=== PATIENT | male | born 1975 | race African-American/Black ===

== ENCOUNTER 2023-10-27 15:35 | Emergency (ER) | payer MEDICAID ==
[~2023-10-27] VITALS: Ht 175.3 cm; Wt 77.0 kg
[2023-10-27 17:05] LABS: CHLORIDE 105 mEq/L (98-107); POTASSIUM 3.2 mEq/L (3.5-5.1); SODIUM 138 mEq/L (136-145)
[2023-10-27 17:06] LABS: BASOPHILS % 1.3 % (0.0-2.0); CALCIUM 8.1 mg/dL (8.7-10.4); CARBON DIOXIDE 22 mEq/L (21-32); HEMATOCRIT. 23.4 % (42.0-52.0); HEMOGLOBIN. 8.1 g/dL (14.0-18.0); LYMPHOCYTES % 8.6 % (20.0-50.0); MEAN CORPUSCULAR HEMOGLOBIN 41.8 pg (28.0-32.0); MEAN CORPUSCULAR HGB CONC 34.7 g/dL (31.0-37.0); MEAN CORPUSCULAR VOLUME 120.5 fL (80.0-94.0); MEAN PLATELET VOLUME 9.9 fl (7.4-10.4); MONOCYTES % 6.6 % (2.0-8.0); NEUTROPHILS % 82.5 % (40.0-76.0); PLATELET 96 x1000/uL (130-400); RED BLOOD CELL COUNT 1.94 mill/uL (4.7-6.1); RED CELL DISTRIBUTION WIDTH 18.1 % (11.6-14.6); WHITE BLOOD COUNT 15.8 x1000/uL (4.5-11.0)
[2023-10-27 17:10] LABS: ADD RBC MORPHOLOGY YES; DIFFERENTIAL COMMENT 1
[2023-10-27 17:11] LABS: CREATININE 1.3 mg/dL (0.6-1.3); GLUCOSE 97 mg/dL (70-105); UREA NITROGEN BLOOD 10 mg/dL (9-23)
[2023-10-27 17:13] LABS: ALANINE AMINOTRANSFERASE 51 IU/L (10-49); ALBUMIN 2.6 g/dL (3.2-4.8); ASPARTATE AMINOTRANSFERASE 442 IU/L (<34); BILIRUBIN DIRECT > 15.0 mg/dL (<=3.0); BILIRUBIN TOTAL 30.8 mg/dL (0.1-1.0); PROTEIN TOTAL 7.4 g/dL (6.0-8.3)
[2023-10-27 17:20] VITALS: BP 127/83; PULSE 105; RESP 22; TEMP 98.2; O2SAT 100
[2023-10-27 17:22] LABS: PLATELET ESTIMATE DECREASED
[2023-10-27 17:23] LABS: ANISOCYTOSIS 2+
[2023-10-27 17:24] LABS: GIANT PLATELETS FEW; OVALOCYTES 1+
[2023-10-27] MEDS ORDERED: FAMO-135 MT (20:35)
[2023-10-27] MEDS ORDERED: ONDA4TAB11 PO (20:35)
== END 2023-10-28 01:12 | disposition left against medical advice (07) ==
LOC: ER 15:35
DX: R11.2 Nausea with vomiting, unspecified (principal); R10.13 Epigastric pain
CPT/HCPCS: 36415; 80053; 80076; 85025; 99283

== ENCOUNTER 2023-11-01 09:07 | Inpatient (IN) | payer OTHER ==
[~2023-11-01] VITALS: Ht 172.7 cm; Wt 90.7 kg
[2023-11-01] VITALS (100 sets, daily range): BP systolic 66–125; BP diastolic 39–93; PULSE 68–143; RESP 16–37; TEMP 97–97.8
[~2023-11-01 09:07] MED LIST: FAMO-135 MT; ONDA4TAB11 PO
[2023-11-01 10:46] LABS: HEMATOCRIT. 20.7 % (42.0-52.0); MEAN CORPUSCULAR HEMOGLOBIN 35.8 pg (28.0-32.0); MEAN CORPUSCULAR HGB CONC 30.7 g/dL (31.0-37.0); MEAN CORPUSCULAR VOLUME 116.7 fL (80.0-94.0); MEAN PLATELET VOLUME 8.9 fl (7.4-10.4); PLATELET 48 x1000/uL (130-400); RED BLOOD CELL COUNT 1.78 mill/uL (4.7-6.1); RED CELL DISTRIBUTION WIDTH 34.4 % (11.6-14.6); WHITE BLOOD COUNT 17.9 x1000/uL (4.5-11.0)
[2023-11-01 11:03] LABS: DIFFERENTIAL COMMENT 1; HEMOGLOBIN. 6.4 g/dL (14.0-18.0)
[2023-11-01 11:08] LABS: CHLORIDE 108 mEq/L (98-107); POTASSIUM 4.4 mEq/L (3.5-5.1); SODIUM 139 mEq/L (136-145)
[2023-11-01 11:09] LABS: CALCIUM 7.2 mg/dL (8.7-10.4)
[2023-11-01 11:14] LABS: GLUCOSE 75 mg/dL (70-105); UREA NITROGEN BLOOD 17 mg/dL (9-23)
[2023-11-01 11:16] LABS: ALANINE AMINOTRANSFERASE 447 IU/L (10-49); ALBUMIN 1.5 g/dL (3.2-4.8); BILIRUBIN TOTAL 18.7 mg/dL (0.1-1.0); PROTEIN TOTAL 4.4 g/dL (6.0-8.3)
[2023-11-01] MEDS: EPINEPHRINE 10 MG in SODIUM CHLORIDE 0.9% 240 ML IV PRN (11:16)
[2023-11-01] MEDS: LACTATED RINGERS 1,000 ML IV SCH (11:16)
[2023-11-01] MEDS: METHYLPREDNISOLONE SOD SUCC 2,000 MG in DEXT 5% WATER 100 ML IV SCH (11:17)
[2023-11-01] MEDS: VASOPRESSIN 20 UNIT in SODIUM CHLORIDE 0.9% 99 ML IV PRN (11:18)
[2023-11-01] MEDS: PHENYLEPHRINE 100 MG in DEXT 5% WATER 240 ML IV PRN (11:18)
[2023-11-01] MEDS: ALBUMIN HUMAN 25GM/500ML (5%) IV SCH (11:24)
[2023-11-01 11:34] LABS: CARBON DIOXIDE < 10 mEq/L (21-32); CREATININE 4.1 mg/dL (0.6-1.3)
[2023-11-01 12:37] LABS: BG BASE EXCESS -23.4 mmol/L (-2.0-2.0); BG CARBOXYHEMOGLOBIN 1.5 % (0.5-1.5); BG DEOXYHEMOGLOBIN 6.7 % (0.0-5.0); BG FRACTION INSPIRED OXYGEN 40; BG HCO3 ACT 7.2 mmol/L (22.0-26.0); BG METHEMOGLOBIN 0.4 % (0.0-1.5); BG OXYGEN SATURATION 93.2 % (92.0-98.5); BG OXYHEMOGLOBIN 91.4 % (94.0-97.0); BG PCO2 37.2 mmHg (35.0-45.0); BG PH 6.906 (7.350-7.450); BG PO2 87.5 mmHg (75.0-100.0); BG SAMPLE SITE LEFT RADIAL; BG TOTAL HEMOGLOBIN 5.7 g/dL (12.0-18.0); BG TOTAL RESPIRATORY RATE 16 b/min; BG VENT MODE VENT - AC
[2023-11-01] MEDS: SODIUM BICARBONATE 8.4% 1 MEQ/ML 50ML SYR IV ONE ×2 (13:00)
[2023-11-01 13:19] LABS: ANISOCYTOSIS 3+; PLATELET ESTIMATE MARKEDLY DECREASED
[2023-11-01] MEDS: SODIUM BICARBONATE 8.4% 1 MEQ/ML 50ML SYR IV NR ×3 (13:40→22:59)
[2023-11-01 14:00] LABS: BG BASE EXCESS -19.1 mmol/L (-2.0-2.0); BG CARBOXYHEMOGLOBIN 1.1 % (0.5-1.5); BG FRACTION INSPIRED OXYGEN 40; BG HCO3 ACT 9.1 mmol/L (22.0-26.0); BG METHEMOGLOBIN 0.2 % (0.0-1.5); BG OXYGEN SATURATION 92.9 % (92.0-98.5); BG OXYHEMOGLOBIN 91.7 % (94.0-97.0); BG PCO2 31.1 mmHg (35.0-45.0); BG PH 7.086 (7.350-7.450); BG SAMPLE SITE LEFT RADIAL; BG TOTAL HEMOGLOBIN 6.3 g/dL (12.0-18.0); BG TOTAL RESPIRATORY RATE 29 b/min; BG VENT MODE VENT - AC
[2023-11-01 14:09] LABS: *AMPHETAMINES SCREEN URINE NEGATIVE (NEGATIVE); *BARBITURATES SCREEN URINE NEGATIVE (NEGATIVE); *COCAINE SCREEN URINE NEGATIVE (NEGATIVE); ECSTASY MDMA SCREEN URINE NEGATIVE (NEGATIVE); METHADONE URINE SCREEN NEGATIVE (NEGATIVE); OPIATES URINE SCREEN NEGATIVE (NEGATIVE); PHENCYCLIDINE URINE SCREEN NEGATIVE (NEGATIVE)
[2023-11-01] MEDS: EPINEPHRINE 20 MG in SODIUM CHLORIDE 0.9% 480 ML IV PRN (14:16)
[2023-11-01] MEDS: BLOOD SUGAR DIAGNOSTIC STRIP TEST SCH (14:18)
[2023-11-01] MEDS: DEXTROSE 50% WATER 50ML SYRINGE IV PRN (16:36)
[2023-11-01] MEDS: PIPERACILLIN/TAZO 3.375G/50ML 50 ML IV SCH (17:02)
[2023-11-01 17:30] LABS: BG BASE EXCESS -16.3 mmol/L (-2.0-2.0); BG CARBOXYHEMOGLOBIN 0.3 % (0.5-1.5); BG DEOXYHEMOGLOBIN 4.6 % (0.0-5.0); BG FRACTION INSPIRED OXYGEN 40; BG HCO3 ACT 11.6 mmol/L (22.0-26.0); BG METHEMOGLOBIN 0.2 % (0.0-1.5); BG OXYGEN SATURATION 95.4 % (92.0-98.5); BG OXYHEMOGLOBIN 94.9 % (94.0-97.0); BG PCO2 35.4 mmHg (35.0-45.0); BG PH 7.133 (7.350-7.450); BG PO2 84.1 mmHg (75.0-100.0); BG SAMPLE SITE ALINE; BG TOTAL HEMOGLOBIN 8.8 g/dL (12.0-18.0); BG VENT MODE VENT - APRV
[2023-11-01 17:35] LABS: HEMATOCRIT. 26.1 % (42.0-52.0); HEMOGLOBIN. 8.5 g/dL (14.0-18.0); MEAN CORPUSCULAR HEMOGLOBIN 33.1 pg (28.0-32.0); MEAN CORPUSCULAR HGB CONC 32.5 g/dL (31.0-37.0); MEAN CORPUSCULAR VOLUME 102.1 fL (80.0-94.0); MEAN PLATELET VOLUME 8.8 fl (7.4-10.4); RED BLOOD CELL COUNT 2.55 mill/uL (4.7-6.1); RED CELL DISTRIBUTION WIDTH 25.8 % (11.6-14.6)
[2023-11-01 17:37] LABS: DIFFERENTIAL COMMENT 1
[2023-11-01 17:38] LABS: PLATELET 35 x1000/uL (130-400)
[2023-11-01 18:06] LABS: PROTHROMBIN TIME > 100.0 sec (9.6-11.0)
[2023-11-01 18:11] LABS: ANISOCYTOSIS 2+; NUCLEATED RED BLOOD CELLS 3 /100 WBC; PLATELET ESTIMATE MARKEDLY DECREASED
[2023-11-01 18:14] LABS: INR > 10.0; PARTIAL THROMBOPLASTIN TIME > 200.0 sec (23.4-31.0)
[2023-11-01 18:23] LABS: LACTIC ACID 18.1 mmol/L (0.4-2.0)
[2023-11-01] MEDS: METHYLPREDNISOLONE SOD SUCC 500 MG in DEXT 5% WATER 100 ML IV SCH (18:42)
[2023-11-01] MEDS: DOBUTAMINE 250MG PREMIX 250 ML IV PRN (18:42)
[2023-11-01] MEDS: NOREPINEPHRINE 32 MG in DEXT 5% WATER 218 ML IV PRN (18:42)
[2023-11-01 20:07] LABS: CHLORIDE 108 mEq/L (98-107); POTASSIUM 4.3 mEq/L (3.5-5.1); SODIUM 147 mEq/L (136-145)
[2023-11-01 20:08] LABS: CARBON DIOXIDE 11 mEq/L (21-32)
[2023-11-01 20:13] LABS: CREATINE KINASE MB FRACTION 6.4 ng/mL (0.5-3.6); CREATININE 3.9 mg/dL (0.6-1.3); GLUCOSE 105 mg/dL (70-105)
[2023-11-01 20:14] LABS: UREA NITROGEN BLOOD 17 mg/dL (9-23)
[2023-11-01 20:15] LABS: ALANINE AMINOTRANSFERASE 554 IU/L (10-49); ALBUMIN 1.7 g/dL (3.2-4.8); AMYLASE 344 IU/L (30-118); ASPARTATE AMINOTRANSFERASE > 1000 IU/L (<34); BILIRUBIN DIRECT > 15.0 mg/dL (<=3.0); CREATINE KINASE 333 IU/L (46-171); LACTATE DEHYDROGENASE > 750 IU/L (120-246)
[2023-11-01 20:16] LABS: BILIRUBIN TOTAL 21.3 mg/dL (0.1-1.0); PROTEIN TOTAL 4.3 g/dL (6.0-8.3)
[2023-11-01 20:25] LABS: CALCIUM 6.7 mg/dL (8.7-10.4); PHOSPHORUS 9.3 mg/dL (2.5-4.9)
[2023-11-01 20:26] LABS: TROPONIN I HIGH SENSITIVITY 183 ng/L (3.0-53)
[2023-11-01] MEDS: FUROSEMIDE 100MG/10ML VIAL IVP NR ×2 (21:01→23:34)
[2023-11-01 21:56] LABS: BG BASE EXCESS -23.8 mmol/L (-2.0-2.0); BG CARBOXYHEMOGLOBIN 0.3 % (0.5-1.5); BG DEOXYHEMOGLOBIN 2.5 % (0.0-5.0); BG FRACTION INSPIRED OXYGEN 40; BG HCO3 ACT 5.5 mmol/L (22.0-26.0); BG METHEMOGLOBIN 0.3 % (0.0-1.5); BG OXYGEN SATURATION 97.5 % (92.0-98.5); BG OXYHEMOGLOBIN 96.9 % (94.0-97.0); BG PCO2 22.4 mmHg (35.0-45.0); BG PH 7.009 (7.350-7.450); BG PO2 116.8 mmHg (75.0-100.0); BG SAMPLE SITE ALINE; BG TOTAL HEMOGLOBIN 8.5 g/dL (12.0-18.0); BG VENT MODE VENT - APRV
[2023-11-01] MEDS: DOPAMINE 800MG PREMIX (DOUBLE) 250 ML IV PRN (23:04)
[2023-11-02] VITALS (60 sets, daily range): BP systolic 82–125; BP diastolic 56–84; PULSE 76–157; RESP 0–33; TEMP 97.7–98.7
[2023-11-02] MEDS: DEXTROSE 50% WATER 50ML SYRINGE IV NR (00:28)
[2023-11-02] MEDS: METOLAZONE 10MG TABLET PO NR (00:35)
[2023-11-02 00:42] LABS: HEMOGLOBIN. 7.4 g/dL (14.0-18.0); MEAN CORPUSCULAR HEMOGLOBIN 33.1 pg (28.0-32.0); MEAN CORPUSCULAR HGB CONC 30.7 g/dL (31.0-37.0); MEAN CORPUSCULAR VOLUME 107.7 fL (80.0-94.0); MEAN PLATELET VOLUME 9.1 fl (7.4-10.4); RED BLOOD CELL COUNT 2.23 mill/uL (4.7-6.1); WHITE BLOOD COUNT 20.1 x1000/uL (4.5-11.0)
[2023-11-02 00:53] LABS: DIFFERENTIAL COMMENT 1; GLUCOSE 135 mg/dL (70-105); PLATELET 31 x1000/uL (130-400)
[2023-11-02 00:54] LABS: BG BASE EXCESS -22.4 mmol/L (-2.0-2.0); BG CARBOXYHEMOGLOBIN 0.2 % (0.5-1.5); BG DEOXYHEMOGLOBIN 1.8 % (0.0-5.0); BG FRACTION INSPIRED OXYGEN 60; BG HCO3 ACT 6.2 mmol/L (22.0-26.0); BG METHEMOGLOBIN 0.6 % (0.0-1.5); BG OXYGEN SATURATION 98.2 % (92.0-98.5); BG OXYHEMOGLOBIN 97.4 % (94.0-97.0); BG PCO2 22.6 mmHg (35.0-45.0); BG PH 7.053 (7.350-7.450); BG PO2 149.4 mmHg (75.0-100.0); BG SAMPLE SITE ALINE; BG TOTAL HEMOGLOBIN 7.2 g/dL (12.0-18.0); BG VENT MODE VENT - APRV
[2023-11-02 00:54] LABS: CREATINE KINASE MB FRACTION 10.5 ng/mL (0.5-3.6); UREA NITROGEN BLOOD 16 mg/dL (9-23)
[2023-11-02 00:55] LABS: ALANINE AMINOTRANSFERASE 576 IU/L (10-49); ALBUMIN 1.8 g/dL (3.2-4.8); AMYLASE 310 IU/L (30-118); ASPARTATE AMINOTRANSFERASE > 1000 IU/L (<34); BILIRUBIN DIRECT 14.7 mg/dL (<=3.0); CREATINE KINASE 600 IU/L (46-171); LACTATE DEHYDROGENASE > 750 IU/L (120-246)
[2023-11-02 00:56] LABS: BILIRUBIN TOTAL 20.9 mg/dL (0.1-1.0)
[2023-11-02 00:57] LABS: CALCIUM 6.6 mg/dL (8.7-10.4); CHLORIDE 106 mEq/L (98-107); CREATININE 4.1 mg/dL (0.6-1.3); POTASSIUM 4.1 mEq/L (3.5-5.1); PROTEIN TOTAL 4.3 g/dL (6.0-8.3); SODIUM 146 mEq/L (136-145)
[2023-11-02] MEDS: FUROSEMIDE 100MG/10ML VIAL IVP NR (01:06)
[2023-11-02 01:08] LABS: CARBON DIOXIDE < 10 mEq/L (21-32)
[2023-11-02 01:09] LABS: PHOSPHORUS 8.6 mg/dL (2.5-4.9); TROPONIN I HIGH SENSITIVITY 292 ng/L (3.0-53)
[2023-11-02 01:11] LABS: LACTIC ACID 21.1 mmol/L (0.4-2.0)
[2023-11-02 01:21] LABS: PROTHROMBIN TIME 31.1 sec (9.6-11.0)
[2023-11-02] MEDS: SODIUM BICARBONATE 8.4% 1 MEQ/ML 50ML SYR IV NR ×6 (01:38→11:10)
[2023-11-02] MEDS ORDERED: METHYLENE BLUE 1% VIAL 1ML IV ONE ×2 (03:15→10:45)
[2023-11-02 04:51] LABS: BG BASE EXCESS -22.3 mmol/L (-2.0-2.0); BG CARBOXYHEMOGLOBIN 0.2 % (0.5-1.5); BG DEOXYHEMOGLOBIN 0.7 % (0.0-5.0); BG FRACTION INSPIRED OXYGEN 90; BG METHEMOGLOBIN 0.6 % (0.0-1.5); BG OXYGEN SATURATION 99.3 % (92.0-98.5); BG OXYHEMOGLOBIN 98.5 % (94.0-97.0); BG PCO2 21.3 mmHg (35.0-45.0); BG PH 7.067 (7.350-7.450); BG PO2 261.3 mmHg (75.0-100.0); BG SAMPLE SITE ALINE; BG TOTAL HEMOGLOBIN 7.8 g/dL (12.0-18.0); BG VENT MODE VENT - APRV
[2023-11-02 05:12] LABS: UREA NITROGEN BLOOD 16 mg/dL (9-23)
[2023-11-02 05:13] LABS: ALANINE AMINOTRANSFERASE 558 IU/L (10-49); ALBUMIN 1.5 g/dL (3.2-4.8); AMYLASE 296 IU/L (30-118); CREATINE KINASE 631 IU/L (46-171)
[2023-11-02 05:14] LABS: BILIRUBIN DIRECT 13.4 mg/dL (<=3.0); BILIRUBIN TOTAL 18.8 mg/dL (0.1-1.0); PHOSPHORUS 7.7 mg/dL (2.5-4.9); PROTEIN TOTAL 3.8 g/dL (6.0-8.3)
[2023-11-02 05:31] LABS: CALCIUM 6.5 mg/dL (8.7-10.4); CHLORIDE 107 mEq/L (98-107); CREATININE 4.3 mg/dL (0.6-1.3); GLUCOSE 144 mg/dL (70-105); POTASSIUM 3.9 mEq/L (3.5-5.1); SODIUM 148 mEq/L (136-145)
[2023-11-02 05:33] LABS: BASOPHILS % 0.2 % (0.0-2.0); EOSINOPHILS % 1.1 % (0.0-5.0); LYMPHOCYTES % 3.6 % (20.0-50.0); MEAN CORPUSCULAR HEMOGLOBIN 33.3 pg (28.0-32.0); MEAN CORPUSCULAR HGB CONC 31.8 g/dL (31.0-37.0); MEAN CORPUSCULAR VOLUME 104.6 fL (80.0-94.0); MONOCYTES % 8.9 % (2.0-8.0); NEUTROPHILS % 86.2 % (40.0-76.0); RED BLOOD CELL COUNT 1.96 mill/uL (4.7-6.1); RED CELL DISTRIBUTION WIDTH 26.2 % (11.6-14.6); WHITE BLOOD COUNT 19.4 x1000/uL (4.5-11.0)
[2023-11-02 05:48] LABS: LACTIC ACID 24.7 mmol/L (0.4-2.0)
[2023-11-02 06:10] LABS: BG BASE EXCESS -23.4 mmol/L (-2.0-2.0); BG CARBOXYHEMOGLOBIN 0.1 % (0.5-1.5); BG DEOXYHEMOGLOBIN 2.2 % (0.0-5.0); BG FRACTION INSPIRED OXYGEN 60; BG HCO3 ACT 5.5 mmol/L (22.0-26.0); BG METHEMOGLOBIN 1.1 % (0.0-1.5); BG OXYGEN SATURATION 97.8 % (92.0-98.5); BG OXYHEMOGLOBIN 96.6 % (94.0-97.0); BG PCO2 21.6 mmHg (35.0-45.0); BG PH 7.025 (7.350-7.450); BG PO2 144.4 mmHg (75.0-100.0); BG SAMPLE SITE ALINE; BG VENT MODE VENT - APRV
[2023-11-02 06:36] LABS: CARBON DIOXIDE < 10 mEq/L (21-32); TROPONIN I HIGH SENSITIVITY 419 ng/L (3.0-53)
[2023-11-02 06:37] LABS: ASPARTATE AMINOTRANSFERASE 5975 IU/L (<34); LACTATE DEHYDROGENASE 5355 IU/L (120-246)
[2023-11-02 06:52] LABS: DIFFERENTIAL COMMENT 1
[2023-11-02 06:53] LABS: HEMOGLOBIN. 6.5 g/dL (14.0-18.0)
[2023-11-02 06:54] LABS: HEMATOCRIT. 20.5 % (42.0-52.0)
[2023-11-02 06:55] LABS: PLATELET 29 x1000/uL (130-400)
[2023-11-02] MEDS: DEXTROSE 50% WATER 50ML SYRINGE IV ONE (08:19)
[2023-11-02 08:39] LABS: PROTHROMBIN TIME 41.3 sec (9.6-11.0)
[2023-11-02 08:41] LABS: INR 4.1; PARTIAL THROMBOPLASTIN TIME 144.6 sec (23.4-31.0)
[2023-11-02 11:00] LABS: ANISOCYTOSIS 2+; NUCLEATED RED BLOOD CELLS 4 /100 WBC; PLATELET ESTIMATE MARKEDLY DECREASED
== END 2023-11-02 12:21 | DRG 44 ==
LOC: MICUNO 09:07
PROVIDERS: ADMIT Internal Medicine
PROC: 4A133B3 Monitoring of Arterial Pressure, Pulmonary, Percutaneous Approach (ICD-10-PCS; principal; 2023-11-01)
PROC: 5A1945Z Respiratory Ventilation, 24-96 Consecutive Hours (ICD-10-PCS; 2023-11-01)
PROC: 0BH17EZ Insertion of Endotracheal Airway into Trachea, Via Natural or Artificial Opening (ICD-10-PCS; 2023-11-01)
PROC: 30233K1 Transfusion of Nonautologous Frozen Plasma into Peripheral Vein, Percutaneous Approach (ICD-10-PCS; 2023-11-01)
PROC: 30233N1 Transfusion of Nonautologous Red Blood Cells into Peripheral Vein, Percutaneous Approach (ICD-10-PCS; 2023-11-01)
DX: I62.9 Nontraumatic intracranial hemorrhage, unspecified (principal); J96.00 Acute respiratory failure, unspecified whether with hypoxia or hypercapnia; R57.8 Other shock; N17.9 Acute kidney failure, unspecified; E43 Unspecified severe protein-calorie malnutrition; D69.6 Thrombocytopenia, unspecified; K74.60 Unspecified cirrhosis of liver; Z68.30 Body mass index [BMI] 30.0-30.9, adult; D64.9 Anemia, unspecified; E87.6 Hypokalemia; F10.10 Alcohol abuse, uncomplicated; K52.9 Noninfective gastroenteritis and colitis, unspecified
CPT/HCPCS: 36415; 36600; 71045; 80053; 80305; 82150; 82248; 82375; 82550; 82553; 82805; 82962; 82977; 83605; 83615; 83735; 83930; 84100; 84484; 85025; 86850; 86900; 86920; 86927; 87070; 93005; 94003; J1250; J1265; J1940; J2370; J2543; J2930; J3490; J7040; J7050; J7060; P9016; P9017; P9041; Q9968